=== PATIENT | female | born 1950 | race Caucasian/White ===

== ENCOUNTER → 2024-02-21 | Outpatient (CLI) | payer MEDICARE ==
[2024-02-21 16:30] LABS: HCT 42.8 % (37.2-46.3); HGB 13.5 g/dL (12.0-15.0); MCH 29.3 pg (27.0-32.0); MCHC 31.5 g/dL (32.0-37.0); Mean Platelet Volume 10.6 FL (9.5-12.2); NRBC Per 100 WBC 0 X 10*3/uL (0.00-0.01); Platelet Count 211 X 10*3/uL (140-440); RDW 13.4 % (11.5-14.5)
[2024-02-21 16:39] LABS: Blood Urea Nitrogen 18.6 mg/dL (9.0-27.0); Carbon Dioxide 25.7 mmol/L (21.6-31.8); Chloride 106 mmol/L (96-109); Potassium 3.9 mmol/L (3.5-5.5); Sodium 142 mmol/L (135-145)
== END | disposition home or self-care (01) ==
LOC: LABPAT 10:14
PROVIDERS: ATTEND Internal Medicine
DX: Z01.812 Encounter for preprocedural laboratory examination (principal); R06.02 Shortness of breath; R55 Syncope and collapse; R07.9 Chest pain, unspecified
CPT/HCPCS: 80051; 82565; 84520; 85027

== ENCOUNTER 2024-02-24 11:42 | Day surgery (SDC) | payer MEDICARE ==
[2024-02-22 09:46] VITALS: BMI 40.1
[~2024-02-24 11:42] MED LIST: ALPRAZolam 0.25 MG TAB PO PRN; ALPRAZolam 0.5 MG TAB PO PRN; ASPIRIN 325 MG TAB PO STA; NITROGLYCERIN SL TABS 0.4 MG TAB SUBLINGUAL PRN
[2024-02-24 12:03] VITALS: RESP 18; TEMP 98.2
[2024-02-24] MEDS: IV FLUID CONTINUATION 1,000 ML IV ONE (12:03)
[2024-02-24] MEDS: SODIUM CHLORIDE 0.9% 1,000 ML in EMPTY BAG 1 BAG IV SCH (12:03)
[2024-02-24 12:18] LABS: Basophils % (A) 1 %; Eosinophils # (A) 0.1 k/uL (0-0.7); Eosinophils % (A) 1 %; HCT 44.2 % (34.0-46.0); HGB 14.7 gm/dL (11.4-16.0); Lymphocytes # (A) 1.8 k/uL (1.0-4.8); Lymphocytes % (A) 24 %; MCHC 33.4 g/dL (31.0-37.0); MCV 89.9 fL (80.0-100.0); Mean Platelet Volume 7.8; Monocytes # (A) 0.3 k/uL (0-1.0); Monocytes % (A) 4 %; Neutrophils # (A) 5.2 k/uL (1.3-7.7); Neutrophils % (A) 69 %; Platelet Count 220 k/uL (150-450); RBC 4.91 m/uL (3.80-5.40); RDW 13.6 % (11.5-15.5); WBC 7.5 k/uL (3.8-10.6)
[2024-02-24 12:27] LABS: African American GFR (CKD) >90 (>60 ml/min/1.73 sqM); Anion Gap 5 mmol/L; Blood Urea Nitrogen 15 mg/dL (7-17); Carbon Dioxide 27 mmol/L (22-30); Chloride 107 mmol/L (98-107); Glucose 109 mg/dL (74-99); Non-African American GFR(CKD) 87 (>60 ml/min/1.73 sqM); Sodium 139 mmol/L (137-145)
[2024-02-24 12:33] LABS: Potassium 4.2 mmol/L (3.5-5.1)
[2024-02-24] MEDS: MIDAZOLAM 2 MG/2 ML VIAL IVP ONE (14:20)
[2024-02-24] MEDS: fentaNYL (PF) 50 MCG/ML 2 ML AMP IVP ONE (14:20)
[2024-02-24] MEDS: LIDOCAINE 1% INJ 10MG/ML (20 ML MDV) SQ ONE (14:21)
[2024-02-24] MEDS: VERAPAMIL SYRINGE (5 MG/10 ML) INTRAARTER ONE (14:23)
[2024-02-24] MEDS: HEPARIN SODIUM 1,000 UN/ML (10ML VL) IV ONE (14:24)
[2024-02-24] MEDS: IOPAMIDOL-370 100ML BTL INJ ONE (14:30)
[2024-02-24] MEDS: HEPARIN SODIUM,PORCINE 10,000 UNIT in SODIUM CHLORIDE 0.9% 1,000 ML IRRIGATION PRN (14:31)
[2024-02-24] MEDS: HEPARIN SODIUM,PORCINE (1 ML) 2,500 UNIT in SODIUM CHLORIDE 0.9% 250 ML IRRIGATION PRN (14:31)
--- NOTE | 2024-02-24 15:05 | P.CARDCATH ---
Description of Procedure: PROCEDURES PERFORMED: Left heart catheterization, bilateral coronary angiography, ultrasound guided arterial access INDICATION: Abnormal stress test CONSENT:I have discussed the risks, benefits and alternative therapies for the above-mentioned procedure and for both sedation/analgesia as well as necessary blood product administration, if indicated, as they pertain to this patient. The patient has indicated understanding and acceptance of the risks and procedures discussed. PROCEDURE: After the risks, benefits and alternatives of the above mentioned procedure explained in detail with the patient, informed consent was obtained. Patient was taken to the catheterization lab and prepped and draped in usual fashion. Ultrasound guidance was used to assess for arterial access. 1% lidocaine was used to anesthetize the right radial artery. A 6-Senegalese sheath was placed in the right radial artery using modified Seldinger technique and ultrasound guidance. Left coronary angiography was performed with a 5-Senegalese JL 3.5 catheter and right coronary angiography was performed with a 5-Senegalese FR5 catheter in various views. A 5-Senegalese FR5 catheter was inserted into the left ventricle and pressure measurements were obtained. The right radial sheath was removed and a TR band was placed with hemostasis achieved. The patient to lerated the procedure well. Patient was transported back to the post catheterization holding area in stable condition. Conscious Sedation: Patient was monitored under the direct supervision of myself for conscious sedation using Versed and fentanyl for a total duration of 10 minutes HEMODYNAMICS: Ao: 131/78 LV: 144/8, LVEDP: 14 SELECTIVE CORONARY ARTERIOGRAPHY: LEFT MAIN: The left main is a large caliber vessel which bifurcates into the LAD and circumflex. There is no significant stenosis. LEFT ANTERIOR DESCENDING CORONARY ARTERY: LAD is a large caliber vessel which wraps around to the apex. There is mild mid LAD 10% stenosis LEFT CIRCUMFLEX CORONARY ARTERY: Left circumflex is a moderate caliber vessel without significant stenosis. RIGHT CORONARY ARTERY: The right coronary artery is a large caliber vessel which gives off a PDA and PLV branch and is the dominant vessel. There is no significant stenosis. FINAL IMPRESSION: 1. Relatively normal coronary arteries other than mild luminal irregularities of the mid LAD 2. Normal left sided filling pressures PLAN: 1. Aggressive risk factor modification per most recent ACC/AHA guidelines. 2. Follow-up in the office in 1-2 weeks.
[2024-02-24 16:21] VITALS: BP 138/65; PULSE 62
== END 2024-02-24 17:11 | disposition home or self-care (01) ==
LOC: CATHCVL 11:42
PROVIDERS: ATTEND Internal Medicine
DX: R07.9 Chest pain, unspecified
CPT/HCPCS: 80048; 85025; 93458

== ENCOUNTER → 2024-11-27 | Outpatient (CLI) | payer MEDICARE ==
--- NOTE | 2024-12-01 17:37 | MR ---
INDICATION: Patient age:Female; 74 years old; Reason for study: I67.9; PHH. COMPARISON: None. TECHNIQUE: Multi planar, multi sequence imaging was performed through the brain without the administr ation of intravenous contrast. FINDINGS: The villegas-white junctions, ventricular system, basal cisterns appear unremarkable. Age-appropriate cer ebral parenchymal volume. Diffusion-weighted imaging shows no evidence of restricted diffusion to sug gest acute/subacute infarct. Intracranial arterial flow voids are maintained. Midline structures show no abnormality. There is focal region of blooming artifact on susceptibility weighted imaging with c orresponding low T2 signal within the mesial left temporal lobe. Measures approximately 1.9 x 1.5 cm (series 501, image 197). This is below the amygdala involving the temporal cerebral cortex. Demonstra cezar a somewhat popcorn appearance centrally. Signal consistent with hemosiderin deposition. No surrou nding edema. Several foci of high T2/FLAIR signal intensity are seen within the subcortical white mat ter. Approximately 10 foci. The bone marrow signal is within normal limits. The paranasal sinuses and globes are unremarkable. IMPRESSION: 1. No evidence of acute/subacute infarct. 2. Mesial left temporal lobe cavernous hemangioma. 3. Nonspecific mild white matter changes, likely related to small vessel ischemic disease. [facility], , 12/01/2024 5:34 PM
== END | disposition home or self-care (01) ==
LOC: RADMRIMAIN 20:20
PROVIDERS: ATTEND Psychiatry & Neurology Neurology
DX: D18.02 Hemangioma of intracranial structures (principal); I67.9 Cerebrovascular disease, unspecified
CPT/HCPCS: 70551